=== PATIENT | female | born 1995 ===

== ENCOUNTER 2018-11-19 16:31 | Inpatient (IN) | payer BC ==
[2018-11-19] MEDS ORDERED: Nalbuphine 10 MG/1 ML Vial IVPUSH PRN (20:31)
[2018-11-19] MEDS ORDERED: Lidocaine 1% 50 ML MDV INJECT PRN (20:31)
[2018-11-19] MEDS ORDERED: Methylergonovine 0.2 MG/1 ML Amp IM PRN (20:31)
[2018-11-19] MEDS ORDERED: Misoprostol 200 MCG Tab PO PRN (20:31)
[2018-11-19] MEDS ORDERED: Sodium Chloride 0.9% 10 ML Syringe FLUSH PRN (20:31)
[2018-11-19] MEDS ORDERED: Sodium Chloride 0.9% 10 ML SDV IV PRN (20:31)
[2018-11-19] MEDS ORDERED: Butorphanol 1 MG/ML SDV IVPUSH PRN (20:31)
[2018-11-19] MEDS ORDERED: Carboprost Tromethamine 250 MCG/1 ML Amp IM PRN (20:31)
[2018-11-19] MEDS ORDERED: Tranexamic Acid 1,000 MG in Sodium Chloride 0.9% 100 ML IV PRN (20:31)
[2018-11-19] MEDS ORDERED: Sodium Chloride 0.9% 2.5 ML Syringe FLUSH PRN (20:31)
[2018-11-19] MEDS ORDERED: Water For Irrigation,Sterile 1,000 ML Container IRR PRN (20:31)
[2018-11-19] MEDS ORDERED: Terbutaline 1 MG/ML SDV SUBCUT PRN (20:33)
[2018-11-19] MEDS ORDERED: Oxytocin/0.9 % Sodium Chloride 30 UNIT/500 ML BAG IV SCH (20:45)
[2018-11-19] MEDS: Lactated Ringers 1,000 ML IV SCH (21:22)
[2018-11-20] MEDS: Lactated Ringers 1,000 ML IV SCH ×2 (08:20→11:34)
[2018-11-20] MEDS ORDERED: fentaNYL 100 MCG/2 ML SDV ONE (08:21)
[2018-11-20] MEDS ORDERED: Lidocaine HCl/EPINEPHrine 5 ML IJ ONE (08:21)
--- NOTE | 2018-11-20 09:36 | PCM.PREANE ---
Preanesthetic Assessment - Procedure Proposed Procedure: GUILLE - Anesthesia/Transfusion/Family Hx Anesthesia History: No Prior Anesthesia Family History of Anesthesia Reaction: No Transfusion History: No Prior Transfusion(s) Intubation History: Unknown - Review of Systems General: No Symptoms Pulmonary: No Symptoms Cardiovascular: No Symptoms Gastrointestinal: No Symptoms Neurological: No Symptoms Other: Reports: None - Physical Assessment Height: 5 ft 5 in Weight: 107.955 kg ASA Class: 2 Mental Status: Alert & Oriented x3 Airway Class: Mallampati = 2 Dentition: Reports: Normal Dentition ROM/Head Extension: Full Lungs: Clear to Auscultation, Normal Respiratory Effort Cardiovascular: Regular Rate, Regular Rhythm - Lab Values: Laboratory Last Values WBC 17.25 K/uL (4.0-11.0) H 11/19/18 21:12 RBC 4.15 M/uL (4.30-5.90) L 11/19/18 21:12 Hgb 12.9 g/dL (12.0-16.0) 11/19/18 21:12 Hct 38.9 % (36.0-46.0) 11/19/18 21:12 MCV 93.7 fL (80.0-98.0) 11/19/18 21:12 MCH 31.1 pg (27.0-32.0) 11/19/18 21:12 MCHC 33.2 g/dL (31.0-37.0) 11/19/18 21:12 RDW Std Deviation 46.0 fl (28.0-62.0) 11/19/18 21:12 RDW Coeff of Samreen 13 % (11.0-15.0) 11/19/18 21:12 Plt Count 248 K/uL (150-400) 11/19/18 21:12 MPV 10.20 fL (7.40-12.00) 11/19/18 21:12 Nucleated RBC % 0.0 /100WBC 11/19/18 21:12 Nucleated RBCs # 0 K/uL 11/19/18 21:12 Blood Type A POSITIVE 11/19/18 21:12 Antibody Screen NEGATIVE 11/19/18 21:12 - Allergies Allergies/Adverse Reactions: Allergies Allergy/AdvReac Type Severity Reaction Status Date / Time glycerin Allergy Hives Verified 11/19/18 16:46 - Blood Blood Available: No - Anesthesia Plan Pre-Op Medication Ordered: None - Acknowledgements Anesthesia Type Planned: Epidural Pt an Appropriate Candidate for the Planned Anesthesia: Yes Alternatives and Risks of Anesthesia Discussed w Pt/Guardian: Yes Pt/Guardian Understands and Agrees with Anesthesia Plan: Yes Additional Comments: arrhythmia PreAnesthesia Questionnaire HEENT History: Reports: Impaired Vision Cardiovascular History: Reports: None Respiratory History: Reports: None Gastrointestinal History: Reports: Other (See Below) Other Gastrointestinal History: constipation during Genitourinary History: Reports: None [employer]INET [employer]DER History: Reports: Musculoskeletal History: Reports: Fracture Neurological History: Reports: Concussion Psychiatric History: Reports: None Endocrine/Metabolic History: Reports: None Hematologic History: Reports: None Oncologic (Cancer) History: Reports: None Dermatologic History: Reports: None - Infectious Disease History Infectious Disease History: Reports: Chicken Pox - Past Surgical History HEENT Surgical History: Reports: Oral Surgery Cardiovascular Surgical History: Reports: None GI Surgical History: Reports: None Female Surgical History: Reports: D&C Musculoskeletal Surgical History: Reports: None - SUBSTANCE USE Smoking Status *Q: Never Smoker Second Hand Smoke Exposure: Yes Recreational Drug Use History: No - CURRENT (IN HOUSE) MEDS Current Meds: Current Medications Butorphanol Tartrate (Stadol) 1 mg IVPUSH Q1H PRN PRN Reason: Pain Carboprost Tromethamine (Hemabate Ds) 250 mcg IM ASDIRECTED PRN PRN Reason: Post Hemorrhage Tranexamic Acid 1,000 mg/ (Sodium Chloride) 110 mls @ 660 mls/hr IV ONETIME PRN PRN Reason: Bleeding Lactated Ringer's (Ringers, Lactated) 1,000 mls @ 150 mls/hr IV ASDIRECTED ÁLVARO Last Admin: 11/20/18 08:20 Dose: 150 mls/hr Oxytocin/Sodium Chloride (Oxytocin 30 Unit/500 Ml-Ns) 30 unit in 500 mls @ 2 mls/hr IV TITRATE ÁLVARO; Protocol Last Titration: 11/20/18 05:07 Dose: 20 munits/min, 20 mls/hr Lidocaine HCl (Xylocaine 1%) 50 ml INJECT ONETIME PRN PRN Reason: Laceration repair Methylergonovine Maleate (Methergine) 0.2 mg IM ASDIRECTED PRN PRN Reason: Post Hemorrhage Misoprostol (Cytotec) 200 mcg PO ONETIME PRN PRN Reason: Post Hemorrhage Nalbuphine HCl (Nubain) 10 mg IVPUSH Q1H PRN PRN Reason: Pain (severe 7-10) Sodium Chloride (Saline Flush) 10 ml FLUSH ASDIRECTED PRN PRN Reason: Keep Vein Open Sodium Chloride (Saline Flush) 2.5 ml FLUSH ASDIRECTED PRN PRN Reason: Keep Vein Open Sodium Chloride (Normal Saline) 10 ml IV ASDIRECTED PRN PRN Reason: IV Use Sterile Water (Sterile Water For Irrigation) 1,000 ml IRR ASDIRECTED PRN PRN Reason: delivery Terbutaline Sulfate (Brethine) 0.25 mg SUBCUT ASDIRECTED PRN PRN Reason: Tacysystole Discontinued Medications Fentanyl (Sublimaze) Confirm Administered Dose 100 mcg .ROUTE .STK-MED ONE Stop: 11/20/18 08:22 Fentanyl/Bupivacaine HCl (Omlfkoth-Dcngq-Kt 2 Mcg/Ml-0.125%) Confirm Administered Dose 100 mls @ as directed .ROUTE .STK-MED ONE Stop: 11/20/18 08:22 Lidocaine/Epinephrine (Lidocaine 1.5%-Epi 1:200,000) Confirm Administered Dose 5 ml IJ .STK-MED ONE Stop: 11/20/18 08:22
--- NOTE | 2018-11-20 09:52 | PCM.SN ---
- Free Text/Narrative Note: Anesthesia time [id number] Called by Mercy Montaño CRNA for assistance in placing epidural. Introduced myself to the patient. All previous drapes were removed. Betadine x3 to back. Sterile drape was placed. 1% Lidocaine was infiltrated. 17g Tuohy needle was introduced until SHAHRIAR was obtained at 6.5.cm. Catheter was threaded easily to 18cm. Catheter was secured with tape and tegaderm. Patient tolerated placement well. No apparent complications. 856 - Patient re-positioned 902 - Catheter placed 903 - Negative: Test dose, CSF, RBC return [id number] - At the bedside to adminster bolus and assess VS and sensory block. VSS, T8 level noted.
[2018-11-20] MEDS ORDERED: Ropivacaine 0.2% 2 MG/ML 100 ML Bag ONE (14:58)
[2018-11-20] MEDS ORDERED: Ropivacaine HCl/PF 0 ML ONE (14:58)
[2018-11-20] MEDS ORDERED: Bupivacaine 0.5% 30 ML SDV ONE (16:29)
[2018-11-20] MEDS ORDERED: Bupivacaine 0.5% 10 ML SDV ONE (16:30)
[2018-11-20] MEDS ORDERED: Morphine PF 10 MG/10 ML SDV ONE (17:17)
[2018-11-20] MEDS ORDERED: Oxytocin/0.9 % Sodium Chloride 30 UNIT/500 ML BAG ONE (17:21)
[2018-11-20] MEDS ORDERED: ceFAZolin/Dextrose,Iso-Osmotic 2 GM/50 ML Duplex Bag IV ONE (17:21)
[2018-11-20] MEDS ORDERED: Ketorolac 30 MG/ML SDV ONE (17:36)
[2018-11-20] MEDS ORDERED: Ondansetron 4 MG/2 ML SDV ONE (17:48)
[2018-11-20] MEDS ORDERED: diphenhydrAMINE 50 MG/ML SDV IVPUSH PRN ×2 (18:06→18:15)
[2018-11-20] MEDS ORDERED: Ondansetron 4 MG/2 ML SDV IVPUSH PRN ×2 (18:06→18:15)
[2018-11-20] MEDS ORDERED: Simethicone 80 MG Tab.Chew PO PRN (18:06)
[2018-11-20] MEDS ORDERED: Lanolin 100% Cream 7 GM Tube TOP PRN (18:06)
[2018-11-20] MEDS ORDERED: Bisacodyl 10 MG Supp RECTAL PRN (18:06)
[2018-11-20] MEDS ORDERED: Acetaminophen/oxyCODONE 325-5 MG Tab PO PRN ×3 (18:06→18:15)
[2018-11-20] MEDS ORDERED: Lactated Ringers 1,000 ML IV SCH (18:15)
[2018-11-20] MEDS ORDERED: fentaNYL 100 MCG/2 ML SDV IVPUSH PRN (18:15)
[2018-11-20] MEDS ORDERED: Nalbuphine 10 MG/1 ML Vial IVPUSH PRN (18:15)
[2018-11-20] MEDS ORDERED: Naloxone 0.4 MG/ML Syringe IVPUSH PRN (18:15)
--- NOTE | 2018-11-20 18:16 | PCM.OPNOTE ---
- General Post-Op/Procedure Note Date of Surgery/Procedure: 11/20/18 Operative Procedure(s): Primary LTCS Findings: Viable male APGARs 8, 8 weight 3500 gm. Delivery intact placenta with 3V cord. Clear amniotic fluid. Normal appearing tubes/ovaries Pre Op Diagnosis: 39/5 week IUP. Arrest of descent Post-Op Diagnosis: Same Anesthesia Technique: Epidural Primary Surgeon: Rose Winslow Fluid Replacement, Intraop: 1,000 (in OR) EBL in mLs: 700 Complications: none known Condition: Good Free Text/Narrative:: Intake & Output 11/20/18 11/20/18 11/20/18 06:59 14:59 22:59 Output Total 100 Balance -100 Dictation [id number]
--- NOTE | 2018-11-20 19:21 | PCM.POSTAN ---
POST ANESTHESIA ASSESSMENT - MENTAL STATUS Mental Status: Alert, Oriented - VITAL SIGNS Pulse Rate: 70 SaO2: 100 Resp Rate: 13 Blood Pressure: 110/59 - RESPIRATORY Respiratory Status: Respiratory Rate WNL, Airway Patent - CARDIOVASCULAR CV Status: Pulse Rate WNL, Blood Pressure Stable - GASTROINTESTINAL GI Status: No Symptoms - POST OP HYDRATION Hydration Status: Adequate & Stable
[2018-11-20] MEDS: Ketorolac 30 MG/ML SDV IVPUSH SCH (19:57)
[2018-11-20] MEDS: Docusate Sodium 100 MG Cap PO SCH (21:21)
[2018-11-21] MEDS: Ketorolac 30 MG/ML SDV IVPUSH SCH ×4 (00:45→17:33)
[2018-11-21] MEDS: Docusate Sodium 100 MG Cap PO SCH ×2 (08:33→21:46)
--- NOTE | 2018-11-21 09:18 | OR ---
SURGEON: Rose Winslow M.D. DATE OF PROCEDURE: 11/20/2018 PREOPERATIVE DIAGNOSES: 1. 39 and 5 weeks' intrauterine . 2. Arrest of descent. POSTOPERATIVE DIAGNOSES: 1. 39 and 5 weeks' intrauterine . 2. Arrest of descent. PROCEDURE: Primary low-transverse section. ANESTHESIA: Epidural. ESTIMATED BLOOD LOSS: 700 mL. FLUIDS: 1000 mL in the OR. COMPLICATIONS: None. FINDINGS: Viable male. Apgars 8 at 1 minute and 8 at 5 minutes. Weight of 3500 g. At delivery, intact placenta, three-vessel cord, normal-appearing pelvis. DISPOSITION: nursery, mom in LDRP and stable. PROCEDURE DETAILS: The patient is a 23-year-old G1, P0, at 39 and 5 weeks' gestational age who was admitted on the evening of 11/19/2018 for an elective induction of labor due to advanced cervical dilation living remote from hospital and then audible arrhythmia noted on the Doppler heart tones in the office. Her heart tones in observation were reassuring with no arrhythmia noted and category 1. She was admitted, routine labs drawn and she was managed by Dr. Clark through the evening and personnel manager hours. She underwent amniotomy with Pitocin induction after clear fluid was returned. She is group B strep negative. I assumed care on the morning of 11/20/2018. At that time, the patient had progressed to 7 cm. I checked her shortly after 11 a.m. and she was found to be complete, 100% effaced and 0 station. Shortly after she began pushing efforts around noon. Pushed throughout the afternoon hours with good intent with Pitocin ranging to 24 milliunits per minute. Ultimately, patient did not descend past the +2 station despite almost 4 hours of pushing efforts. Options have been discussed with her at this point including option for operative vaginal delivery attempt versus . The patient and her opted for . Risks of procedure were discussed with her including infection, bleeding, and possible trauma to surrounding bowel, bladder, ureters; in case of excessive blood loss, need for blood product transfusion, in rare lifesaving circumstances, need for hysterectomy; risk for thromboembolic event; and risk of anesthesia. Proper consent was obtained. The patient was taken to the operating room where she underwent a bolus of her epidural, was placed in the dorsal supine position with leftward tilt. SCDs to lower extremities, Bills to gravity and was prepped and draped in the usual sterile fashion in frog-leg position. After being prepped and draped in usual sterile fashion, the patient's anesthesia was tested and found to be adequate. Pfannenstiel incisions were then made, carried down to level of the rectus fascia which was incised in midline, lateralized on either side sharply and bluntly. The superior aspect of fascia was tented up, dissected sharply and bluntly from underlying muscles. Similar aspect was performed with the inferior aspect of the fascia. Rectus muscle was in midline. Peritoneum was entered. Rectus muscles and peritoneum were now lateralized bluntly. Uterine position and position were palpated. A self-retaining retractor now gently placed. Uterovesical reflection was visualized. Bladder flap was created sharply and bluntly. Bladder was mobilized away from the lower uterine segment. Low transverse hysterotomy was now performed. Uterine cavity was entered with blunt end of the scalpel. Hysterotomy was lateralized bluntly. The 's head was delivered from the pelvis with the help of a vaginal hand from Labor and delivery nurse. The head was delivered followed by anterior shoulder, posterior shoulder, and remainder of the body without difficulty. 's oropharynx and nares were bulb suctioned. Cord was clamped x2 and cut. The was crying and passed off to the attending pediatric staff. Cord arterial, cord venous, cord blood sampling were obtained. The placenta was now delivered. Uterine cavity was cleared of all clot and debris. Hysterotomy repaired using 0 Vicryl in continuous running locked fashion followed by re- imbricating layer. Area of oozing along the left lateral side was replicated with [id number] suture. The posterior aspect of the uterus was inspected. No defects or hematomas were found to be forming. Tubes and ovaries appeared normal. Region was well irrigated and suction dried. Uterus returned to the abdominal cavity. Colonic gutters were cleared of all clot and debris, well irrigated and suction dried. Hysterotomy was inspected, found to be hemostatic. Self-retaining retractor now gently removed. Bladder blade was placed. Hysterotomy inspected and found to be hemostatic. The bladder blade was removed. The rectus muscle and peritoneum were reapproximated using 0 Vicryl in inverted mattress suture technique. Anterior aspect of the muscle and posterior aspect of the fascia were closely inspected. Any areas of oozing were cauterized. The rectus fascia was reapproximated using 0 Vicryl in continuous running fashion beginning laterally on either side and meeting in the midline. Subcutaneous tissue was well irrigated and suction dried. Any areas of oozing were cauterized. The skin edges were now reapproximated using 3-0 Vicryl on a Maximino needle in a subcuticular fashion followed by re-imbrication of incision with half-inch Steri-Strips and Mastisol. Sponge, instrument and needle counts were correct x2. The patient tolerated the procedure well. She will go to PACU in stable condition. SHERWIN / MAAME /[id number]
--- NOTE | 2018-11-21 11:31 | PCM48HPAN ---
Post Anesthesia Note - EVALUATION WITHIN 48HRS OF ANESTHETIC Vital Signs in Normal Range: Yes Patient Participated in Evaluation: Yes Respiratory Function Stable: Yes Airway Patent: Yes Cardiovascular Function Stable: Yes Hydration Status Stable: Yes Pain Control Satisfactory: Yes Nausea and Vomiting Control Satisfactory: Yes Mental Status Recovered: Yes Pulse Rate: 70 Resp Rate: 18 Blood Pressure: 110/59
--- NOTE | 2018-11-21 19:28 | PCM.PNPP ---
- General Info Date of Service: 11/21/18 Subjective Update: 23 yo P1 s/p Primary LTCS for Arrest for descent Functional Status: Reports: Pain Controlled, Tolerating Diet, Ambulating, Urinating - Review of Systems General: Reports: No Symptoms HEENT: Reports: No Symptoms Pulmonary: Reports: No Symptoms Cardiovascular: Reports: No Symptoms Gastrointestinal: Reports: No Symptoms Genitourinary: Reports: No Symptoms Musculoskeletal: Reports: No Symptoms Skin: Reports: No Symptoms Neurological: Reports: No Symptoms Psychiatric: Reports: No Symptoms - General Info Date of Service: 11/21/18 - Patient Data Vital Signs - Most Recent: Last Vital Signs Temp 36.6 C 11/21/18 16:00 Pulse 98 11/21/18 17:30 Resp 20 11/21/18 17:30 BP 96/52 L 11/21/18 16:00 Pulse Ox 97 11/21/18 17:30 Weight - Most Recent: 107.955 kg I&O - Last 24 Hours: Intake & Output 11/21/18 11/21/18 11/21/18 06:59 14:59 22:59 Output Total 850 625 450 Balance -850 -625 -450 Lab Results - Last 24 Hours: Laboratory Results - last 24 hr 11/21/18 Range/Units 06:01 Hgb 10.9 L (12.0-16.0) g/dL Hct 33.4 L (36.0-46.0) % Med Orders - Current: Current Medications Bisacodyl (Dulcolax) 10 mg RECTAL ONETIME PRN PRN Reason: Constipation Carboprost Tromethamine (Hemabate Ds) 250 mcg IM ASDIRECTED PRN PRN Reason: Post Hemorrhage Docusate Sodium (Colace) 100 mg PO BID [facility] Last Admin: 11/21/18 08:33 Dose: 100 mg Emollient Ointment (Lansinoh Hpa) 0 gm TOP ASDIRECTED PRN PRN Reason: Sore Nipples Fentanyl (Sublimaze) 50 mcg IVPUSH Q1H PRN PRN Reason: Pain (severe 7-10) Tranexamic Acid 1,000 mg/ (Sodium Chloride) 110 mls @ 660 mls/hr IV ONETIME PRN PRN Reason: Bleeding Lactated Ringer's (Ringers, Lactated) 1,000 mls @ 150 mls/hr IV ASDIRECTED [facility] Last Admin: 11/20/18 11:34 Dose: 150 mls/hr Oxytocin/Sodium Chloride (Oxytocin 30 Unit/500 Ml-Ns) 30 unit in 500 mls @ 2 mls/hr IV TITRATE ÁLVARO; Protocol Last Titration: 11/20/18 16:23 Dose: 24 munits/min, 24 mls/hr Lactated Ringer's (Ringers, Lactated) 1,000 mls @ 125 mls/hr IV ASDIRECTED ÁLVARO Ibuprofen (Motrin) 800 mg PO Q8H PRN PRN Reason: mild pain or fever Methylergonovine Maleate (Methergine) 0.2 mg IM ASDIRECTED PRN PRN Reason: Post Hemorrhage Nalbuphine HCl (Nubain) 5 mg IVPUSH ASDIRECTED PRN PRN Reason: Itching Last Admin: 11/21/18 00:47 Dose: 5 mg Ondansetron HCl (Zofran) 4 mg IVPUSH Q6H PRN PRN Reason: Nausea Oxycodone/Acetaminophen (Percocet 325-5 Mg) 2 tab PO Q6H PRN PRN Reason: Pain (moderate 4-6) Simethicone (Simethicone) 80 mg PO Q4H PRN PRN Reason: Gas Sodium Chloride (Saline Flush) 10 ml FLUSH ASDIRECTED PRN PRN Reason: Keep Vein Open Sodium Chloride (Saline Flush) 2.5 ml FLUSH ASDIRECTED PRN PRN Reason: Keep Vein Open Sodium Chloride (Normal Saline) 10 ml IV ASDIRECTED PRN PRN Reason: IV Use Sterile Water (Sterile Water For Irrigation) 1,000 ml IRR ASDIRECTED PRN PRN Reason: delivery Discontinued Medications Bupivacaine HCl (Marcaine 0.5%) Confirm Administered Dose 60 ml .ROUTE .STK-MED ONE Stop: 11/20/18 16:30 Last Admin: 11/21/18 01:34 Dose: Not Given Bupivacaine HCl (Sensorcaine-Mpf 0.5%) Confirm Administered Dose 20 ml .ROUTE .STK-MED ONE Stop: 11/20/18 16:31 Last Admin: 11/21/18 01:34 Dose: Not Given Butorphanol Tartrate (Stadol) 1 mg IVPUSH Q1H PRN PRN Reason: Pain Cefazolin Sodium/Dextrose (Ancef) Confirm Administered Dose 2 gm IV .STK-MED ONE Stop: 11/20/18 17:22 Diphenhydramine HCl (Benadryl) 25 mg IVPUSH Q6H PRN PRN Reason: Itching or Nausea Diphenhydramine HCl (Benadryl) 25 mg IVPUSH Q4H PRN PRN Reason: Itching Stop: 11/21/18 18:16 Last Admin: 11/20/18 21:21 Dose: 25 mg Fentanyl (Sublimaze) Confirm Administered Dose 100 mcg .ROUTE .STK-MED ONE Stop: 11/20/18 08:22 Last Admin: 11/21/18 01:33 Dose: Not Given Fentanyl/Bupivacaine HCl (Wyrvtsso-Kbeuz-Ak 2 Mcg/Ml-0.125%) Confirm Administered Dose 100 mls @ as directed .ROUTE .[employer]-MED ONE Stop: 11/20/18 08:22 Last Admin: 11/21/18 01:33 Dose: Not Given Ropivacaine (Naropin 0.2%) Confirm Administered Dose 100 mls @ as directed .ROUTE .[employer]-MED ONE Stop: 11/20/18 14:59 Last Admin: 11/21/18 01:33 Dose: Not Given Fentanyl/Bupivacaine HCl (Pxkbeehj-Jdlpt-Xd 2 Mcg/Ml-0.125%) Confirm Administered Dose 100 mls @ as directed .ROUTE .[employer]-MED ONE Stop: 11/20/18 15:03 Last Admin: 11/21/18 01:34 Dose: Not Given Oxytocin/Sodium Chloride (Oxytocin 30 Unit/500 Ml-Ns) Confirm Administered Dose 30 unit in 500 mls @ as directed .ROUTE .[employer]-MED ONE Stop: 11/20/18 17:22 Ketorolac Tromethamine (Toradol) Confirm Administered Dose 30 mg .ROUTE .STK- MED ONE Stop: 11/20/18 17:37 Ketorolac Tromethamine (Toradol) 30 mg IVPUSH Q6H ÁLVARO Stop: 11/21/18 18:16 Last Admin: 11/21/18 17:33 Dose: 30 mg Lidocaine HCl (Xylocaine 1%) 50 ml INJECT ONETIME PRN PRN Reason: Laceration repair Lidocaine/Epinephrine (Lidocaine 1.5%-Epi 1:200,000) Confirm Administered Dose 5 ml IJ .STK-MED ONE Stop: 11/20/18 08:22 Last Admin: 11/21/18 01:33 Dose: Not Given Misoprostol (Cytotec) 200 mcg PO ONETIME PRN PRN Reason: Post Hemorrhage Morphine Sulfate (Duramorph Pf) Confirm Administered Dose 10 mg .ROUTE .STK-MED ONE Stop: 11/20/18 17:18 Nalbuphine HCl (Nubain) 10 mg IVPUSH Q1H PRN PRN Reason: Pain (severe 7-10) Naloxone HCl (Narcan) 0.1 mg IVPUSH ONETIME PRN PRN Reason: Respiratory Depression Stop: 11/21/18 18:16 Ondansetron HCl (Zofran) Confirm Administered Dose 4 mg .ROUTE .STK-MED ONE Stop: 11/20/18 17:49 Ondansetron HCl (Zofran) 4 mg IVPUSH Q4H PRN PRN Reason: Nausea/Vomiting Oxycodone/Acetaminophen (Percocet 325-5 Mg) 1 tab PO Q4H PRN PRN Reason: Pain (moderate 4-6) Oxycodone/Acetaminophen (Percocet 325-5 Mg) 2 tab PO Q4H PRN PRN Reason: Pain (moderate 4-6) Ropivacaine (Naropin 0.2%) 200 mg .ROUTE .STK-MED ONE Stop: 11/20/18 14:59 Terbutaline Sulfate (Brethine) 0.25 mg SUBCUT ASDIRECTED PRN PRN Reason: Tacysystole - Infant Interaction Support Person: - Recovery Exam Fundal Tone: Firm Fundal Level: 2 Fingerbreadths Below Umbilicus Fundal Placement: Midline Lochia Amount: Scant Lochia Color: Rubra/Red Perineum Description: Intact, Minimal Bruising/Swelling Episiotomy/Laceration: None Bladder Status: Indwelling Catheter in Place Urinary Elimination: Indwelling Catheter - Exam General: Alert HEENT: Pupils Equal Neck: Supple Lungs: Clear to Auscultation Cardiovascular: Regular Rate, Regular Rhythm GI/Abdominal Exam: Normal Bowel Sounds, Other (Pfannestiel skin incision c/d/i) Skin: Warm Wound/Incisions: Healing Well, Dressing Dry and Intact Psy/Mental Status: Alert - Problem List & Annotations (1) delivery delivered SNOMED Code(s): 731185650 Code(s): O82 - ENCOUNTER FOR DELIVERY WITHOUT INDICATION Status: Acute Current Visit: Yes - Problem List Review Problem List Initiated/Reviewed/Updated: Yes - Assessment Assessment:: 23yo P1 s/p Primary LTCS , ambulating voiding and tolerating regular diet - Plan Plan:: Pain control Regular diet Anticipate discharge tomorrow
[2018-11-21] MEDS ORDERED: Acetaminophen/oxyCODONE 325-5 MG Tab PO PRN (21:25)
[2018-11-21] MEDS: Acetaminophen/oxyCODONE 325-5 MG Tab PO PRN (21:45)
[2018-11-22] MEDS: Ibuprofen 800 MG Tab PO PRN ×2 (00:58→14:08)
[2018-11-22] MEDS: Acetaminophen/oxyCODONE 325-5 MG Tab PO PRN ×2 (06:14→11:19)
--- NOTE | 2018-11-22 08:06 | PCM.PNPP ---
- General Info Date of Service: 11/22/18 Functional Status: Reports: Pain Controlled, Tolerating Diet, Ambulating, Urinating - Review of Systems General: Denies: Fever, Weakness, Fatigue Pulmonary: Denies: Shortness of Breath, Pleuritic Chest Pain, Cough Cardiovascular: Denies: Chest Pain, Palpitations, Dyspnea on Exertion Gastrointestinal: Denies: Abdominal Pain Genitourinary: Denies: Dysuria - General Info Date of Service: 11/22/18 - Patient Data Vital Signs - Most Recent: Last Vital Signs Temp 36.3 C 11/22/18 07:20 Pulse 76 11/22/18 07:20 Resp 16 11/22/18 07:20 BP 113/59 L 11/22/18 07:20 Pulse Ox 96 11/22/18 07:20 Weight - Most Recent: 107.955 kg I&O - Last 24 Hours: Intake & Output 11/21/18 11/22/18 11/22/18 22:59 06:59 14:59 Output Total 450 Balance -450 Med Orders - Current: Current Medications Bisacodyl (Dulcolax) 10 mg RECTAL ONETIME PRN PRN Reason: Constipation Carboprost Tromethamine (Hemabate Ds) 250 mcg IM ASDIRECTED PRN PRN Reason: Post Hemorrhage Docusate Sodium (Colace) 100 mg PO BID [facility] Last Admin: 11/21/18 21:46 Dose: 100 mg Emollient Ointment (Lansinoh Hpa) 0 gm TOP ASDIRECTED PRN PRN Reason: Sore Nipples Fentanyl (Sublimaze) 50 mcg IVPUSH Q1H PRN PRN Reason: Pain (severe 7-10) Tranexamic Acid 1,000 mg/ (Sodium Chloride) 110 mls @ 660 mls/hr IV ONETIME PRN PRN Reason: Bleeding Lactated Ringer's (Ringers, Lactated) 1,000 mls @ 150 mls/hr IV ASDIRECTED [facility] Last Admin: 11/20/18 11:34 Dose: 150 mls/hr Oxytocin/Sodium Chloride (Oxytocin 30 Unit/500 Ml-Ns) 30 unit in 500 mls @ 2 mls/hr IV TITRATE ÁLVARO; Protocol Last Titration: 11/20/18 16:23 Dose: 24 munits/min, 24 mls/hr Lactated Ringer's (Ringers, Lactated) 1,000 mls @ 125 mls/hr IV ASDIRECTED ÁLVARO Ibuprofen (Motrin) 800 mg PO Q8H PRN PRN Reason: mild pain or fever Last Admin: 11/22/18 00:58 Dose: 800 mg Methylergonovine Maleate (Methergine) 0.2 mg IM ASDIRECTED PRN PRN Reason: Post Hemorrhage Nalbuphine HCl (Nubain) 5 mg IVPUSH ASDIRECTED PRN PRN Reason: Itching Last Admin: 11/21/18 00:47 Dose: 5 mg Ondansetron HCl (Zofran) 4 mg IVPUSH Q6H PRN PRN Reason: Nausea Oxycodone/Acetaminophen (Percocet 325-5 Mg) 1 tab PO Q4H PRN PRN Reason: Pain (moderate 4-6) Last Admin: 11/22/18 06:14 Dose: 1 tab Oxycodone/Acetaminophen (Percocet 325-5 Mg) 2 tab PO Q4H PRN PRN Reason: Pain (moderate 4-6) Simethicone (Simethicone) 80 mg PO Q4H PRN PRN Reason: Gas Sodium Chloride (Saline Flush) 10 ml FLUSH ASDIRECTED PRN PRN Reason: Keep Vein Open Sodium Chloride (Saline Flush) 2.5 ml FLUSH ASDIRECTED PRN PRN Reason: Keep Vein Open Sodium Chloride (Normal Saline) 10 ml IV ASDIRECTED PRN PRN Reason: IV Use Sterile Water (Sterile Water For Irrigation) 1,000 ml IRR ASDIRECTED PRN PRN Reason: delivery Discontinued Medications Bupivacaine HCl (Marcaine 0.5%) Confirm Administered Dose 60 ml .ROUTE .STK-MED ONE Stop: 11/20/18 16:30 Last Admin: 11/21/18 01:34 Dose: Not Given Bupivacaine HCl (Sensorcaine-Mpf 0.5%) Confirm Administered Dose 20 ml .ROUTE .STK-MED ONE Stop: 11/20/18 16:31 Last Admin: 11/21/18 01:34 Dose: Not Given Butorphanol Tartrate (Stadol) 1 mg IVPUSH Q1H PRN PRN Reason: Pain Cefazolin Sodium/Dextrose (Ancef) Confirm Administered Dose 2 gm IV .STK-MED ONE Stop: 11/20/18 17:22 Diphenhydramine HCl (Benadryl) 25 mg IVPUSH Q6H PRN PRN Reason: Itching or Nausea Diphenhydramine HCl (Benadryl) 25 mg IVPUSH Q4H PRN PRN Reason: Itching Stop: 11/21/18 18:16 Last Admin: 11/20/18 21:21 Dose: 25 mg Fentanyl (Sublimaze) Confirm Administered Dose 100 mcg .ROUTE .[employer]-MED ONE Stop: 11/20/18 08:22 Last Admin: 11/21/18 01:33 Dose: Not Given Fentanyl/Bupivacaine HCl ([id number]-[id number]-Gg 2 Mcg/Ml-0.125%) Confirm Administered Dose 100 mls @ as directed .ROUTE .[employer]-MED ONE Stop: 11/20/18 08:22 Last Admin: 11/21/18 01:33 Dose: Not Given Ropivacaine (Naropin 0.2%) Confirm Administered Dose 100 mls @ as directed .ROUTE .[employer] ONE Stop: 11/20/18 14:59 Last Admin: 11/21/18 01:33 Dose: Not Given Fentanyl/Bupivacaine HCl (Elgrfovm-Wniia-Ja 2 Mcg/Ml-0.125%) Confirm Administered Dose 100 mls @ as directed .ROUTE .[employer] ONE Stop: 11/20/18 15:03 Last Admin: 11/21/18 01:34 Dose: Not Given Oxytocin/Sodium Chloride (Oxytocin 30 Unit/500 Ml-Ns) Confirm Administered Dose 30 unit in 500 mls @ as directed .ROUTE .[email or web address] ONE Stop: 11/20/18 17:22 Ketorolac Tromethamine (Toradol) Confirm Administered Dose 30 mg .ROUTE .[employer]- MED ONE Stop: 11/20/18 17:37 Ketorolac Tromethamine (Toradol) 30 mg IVPUSH Q6H ÁLVARO Stop: 11/21/18 18:16 Last Admin: 11/21/18 17:33 Dose: 30 mg Lidocaine HCl (Xylocaine 1%) 50 ml INJECT ONETIME PRN PRN Reason: Laceration repair Lidocaine/Epinephrine (Lidocaine 1.5%-Epi 1:200,000) Confirm Administered Dose 5 ml IJ .[employer]-MED ONE Stop: 11/20/18 08:22 Last Admin: 11/21/18 01:33 Dose: Not Given Misoprostol (Cytotec) 200 mcg PO ONETIME PRN PRN Reason: Post Hemorrhage Morphine Sulfate (Duramorph Pf) Confirm Administered Dose 10 mg .ROUTE .STK-MED ONE Stop: 11/20/18 17:18 Nalbuphine HCl (Nubain) 10 mg IVPUSH Q1H PRN PRN Reason: Pain (severe 7-10) Naloxone HCl (Narcan) 0.1 mg IVPUSH ONETIME PRN PRN Reason: Respiratory Depression Stop: 11/21/18 18:16 Ondansetron HCl (Zofran) Confirm Administered Dose 4 mg .ROUTE .STK-MED ONE Stop: 11/20/18 17:49 Ondansetron HCl (Zofran) 4 mg IVPUSH Q4H PRN PRN Reason: Nausea/Vomiting Oxycodone/Acetaminophen (Percocet 325-5 Mg) 1 tab PO Q4H PRN PRN Reason: Pain (moderate 4-6) Oxycodone/Acetaminophen (Percocet 325-5 Mg) 2 tab PO Q4H PRN PRN Reason: Pain (moderate 4-6) Oxycodone/Acetaminophen (Percocet 325-5 Mg) 2 tab PO Q6H PRN PRN Reason: Pain (moderate 4-6) Ropivacaine (Naropin 0.2%) 200 mg .ROUTE .STK-MED ONE Stop: 11/20/18 14:59 Terbutaline Sulfate (Brethine) 0.25 mg SUBCUT ASDIRECTED PRN PRN Reason: Tacysystole - Interaction Disposition, : in Room with Family Interaction: Holding Infant Feeding: Breastfed ; Nursed Well Support Person: - Recovery Exam Fundal Tone: Firm Fundal Level: 1 Fingerbreadths Below Umbilicus Fundal Placement: Midline Lochia Amount: Scant Lochia Color: Rubra/Red Perineum Description: Intact, Minimal Bruising/Swelling Episiotomy/Laceration: None Bladder Status: Voiding Urinary Elimination: Indwelling Catheter - Exam General: Alert, Oriented Neck: Supple Lungs: Clear to Auscultation, Normal Respiratory Effort Cardiovascular: Regular Rate, Regular Rhythm GI/Abdominal Exam: Normal Bowel Sounds, Soft, Non-Tender, No Distention, No Mass Extremities: Normal Inspection, Non-Tender, Normal Capillary Refill, Pedal Edema (trace) Skin: Warm, Dry, Intact - Problem List Review Problem List Initiated/Reviewed/Updated: Yes - Assessment Assessment:: 23yo P2 s/p Primary LTCS. Minimal pain and lochia. Breast feeding well. Discharge home today - Plan Plan:: Discharge instructions reviewed. Pelvic rest for 6 weeks. Rx for Percocet to use as needed for pain. No lifting greater than 10lbs for 6 weeks. Instructed patient to call if she develops fever greater than 101 or bleeding through a large pad/hr. F/U with [facility] in 2 and 6 weeks
[2018-11-22] MEDS: Docusate Sodium 100 MG Cap PO SCH (08:58)
== END 2018-11-22 15:10 | disposition home or self-care (01) | DRG 540 ==
LOC: MW.OBCHECK 16:31 → MW.OB 17:14 → OBSVTOIN 11-20 17:14 → MW.OB 11-20 22:34
PROVIDERS: ADMIT Obstetrics & Gynecology; ATTEND Obstetrics & Gynecology
PROC: 10D00Z1 Extraction of Products of Conception, Low, Open Approach (ICD-10-PCS; principal; 2018-11-20)
PROC: 6A550ZT Pheresis of Cord Blood Stem Cells, Single (ICD-10-PCS; 2018-11-20)
PROC: 3E0P7VZ Introduction of Hormone into Female Reproductive, Via Natural or Artificial Opening (ICD-10-PCS; 2018-11-20)
PROC: 3E033VJ Introduction of Other Hormone into Peripheral Vein, Percutaneous Approach (ICD-10-PCS; 2018-11-20)
PROC: 10907ZC Drainage of Amniotic Fluid, Therapeutic from Products of Conception, Via Natural or Artificial Opening (ICD-10-PCS; 2018-11-20)
DX: O62.1 Secondary uterine inertia (principal); Z3A.39 39 weeks gestation of pregnancy; Z37.0 Single live birth; Z91.09 Other allergy status, other than to drugs and biological substances
CPT/HCPCS: 36415; 51702; 59025; 82803; 85014; 85018; 85027; 86850; 86900; 86901; A9270-GY; J0690; J1200; J1885; J2270; J2300; J2405; J2590; J2795; J3010; J3490; J7120